=== PATIENT | female | born 1940 | race Caucasian/White ===

== ENCOUNTER 2017-09-22 16:00 | Inpatient (IN) | payer MEDICARE, BC ==
[~2017-09-22] VITALS: Ht 160 cm; Wt 71.7 kg
[~2017-09-22 16:00] MED LIST: ACETAMINOPHEN325 M1 PO; ACETAMINOPHEN650 M5 PO; AMLODIPINE BESY10 MG PO; ASPIRIN81 M2 PO; ATORVASTATIN CA40 MG PO; CELEXA40 MG PO; CENTRUM SILVER1 EAC4 PO; CHANTIX1 MG PO; COLACE100 MG PO; COUMADIN 5 MG TA5 M1 PO; ENOXAPARIN40 MG/0.1 SQ; ERYTHROMYCIN250 MG; KEFLEX500 MG PO; LISINOPRIL40 MG PO; MILK OF MA2400 MG/10 PO; MOBIC7.5 MG PO; NEURONTIN 300300 M1 PO; NICOTINE TRANSD21 M1 TRANSDERM; NITRO-DUR 0.1M0.1 M1 TD; NITRO-DUR 0.1M0.1 M1 TRANSDERM; NITROGLYCERIN0.4 MG SL; NORCO 5-325 TA1 EACH PO; PEPCID40 MG PO; PHENERGAN 25 MG25 MG PO; PLAVIX 75 MG TA75 MG PO; PRILOSEC 20 MG20 MG PO; PRILOSEC40 MG PO; PRIMIDONE50 MG PO; PRINIVIL40 MG PO; PROPRANOLOL 1010 M1 PO; PROPRANOLOL 20M20 M1 PO; RANITIDINE 150150 M1 PO; SIMVASTATIN40 MG PO; TRAMADOL 50 MG50 MG PO; ULTRAM 50MG TAB50 MG PO
[2017-09-22 16:01] VITALS: BP 90/31
--- NOTE | 2017-09-22 16:10 | NUR ---
DR VAZQUEZ NOTIFIED OF LOW B/P
[2017-09-22 16:50] LABS: ABSOLUTE EOSINOPHILS 0.2 thou/uL (0.0-0.7); ABSOLUTE MONOCYTES 0.5 thou/uL (0.0-1.2); ABSOLUTE NEUTROPHILS 6.2 thou/uL (1.6-8.1); BASOPHILS 0.5 %; EOSINOPHILS 2.3 %; HEMATOCRIT 37.1 % (37.0-47.0); HEMOGLOBIN 12.2 gm/dL (12.0-15.0); LYMPHOCYTES 12.6 %; MCH 30.4 pg (26.0-34.0); MCHC 32.8 g/dL (28.0-37.0); MCV 92.7 fL (80.0-100.0); MONOCYTES 6.7 %; MPV 8.5 fl. (7.2-11.1); NUCLEATED RBCS 0 /100WBC; PLATELET COUNT* 168 thou/uL (150-400); POLYS 77.9 %; RDW-CV 14.8 % (10.5-14.5); WBC 7.9 thou/uL (4.0-11.0)
[2017-09-22 16:58] LABS: ANION GAP 6 mmol/L (7-16); BUN 24 mg/dL (7-18); CALCIUM 8.6 mg/dL (8.5-10.1); CHLORIDE 103 mmol/L (98-107); CO2 31 mmol/L (21-32); CREATININE 2.5 mg/dL (0.6-1.3); GLUCOSE 105 mg/dL (70-99); POTASSIUM 3.8 mmol/L (3.5-5.1); SODIUM 140 mmol/L (136-145)
[2017-09-22] MEDS ORDERED: PERCOCET PO (17:06)
[2017-09-22] MEDS ORDERED: FLEXERIL PO (17:06)
[2017-09-22 17:12] LABS: ALBUMIN 3.7 g/dL (3.4-5.0); ALKALINE PHOSPHATASE 158 U/L (46-116); NT-PRO BRAIN NAT PEPTIDE 560 pg/mL (<300); SGOT 42 U/L (15-37); SGPT 33 U/L (30-65); TOTAL BILIRUBIN 0.4 mg/dL (<0.1-1.0); TOTAL PROTEIN 8.4 g/dL (6.4-8.2); TROPONIN-I LEVEL <0.06 ng/mL (<0.06)
[2017-09-22 18:19] LABS: URINE BILIRUBIN NEGATIVE (Negative); URINE BLOOD NEGATIVE (Negative); URINE CLARITY CLEAR; URINE COLOR DARK YELLOW; URINE GLUCOSE-RANDOM NEGATIVE (Negative); URINE KETONES TRACE (Negative); URINE LEUKOCYTES-REFLEX 1+ (Negative); URINE NITRITE-REFLEX NEGATIVE (Negative); URINE PROTEIN NEGATIVE (Negative); URINE SPECIFIC GRAVITY >= 1.030 (1.005-1.030); URINE UROBILINOGEN 0.2 E.U./dl (0.2-1.0)
[2017-09-22 18:31] VITALS: BP 106/58
[2017-09-22 18:32] LABS: BACTERIA-REFLEX >30 Many /HPF (None Seen); HYALINE CASTS >10 Many /LPF (None Seen); MUCUS >6 Heavy strn/LPF (None Seen); SQUAMOUS >10 Many /LPF (0-3); URINE RBC 3-10 Few /HPF (0-2)
[2017-09-22 18:33] LABS: CRYSTALS None Seen /LPF (None Seen)
[2017-09-22 19:30] LABS: PHOSPHORUS* 5.1 mg/dL (2.5-4.9)
[2017-09-22 19:58] VITALS: BP 112/68
[2017-09-22 20:00] VITALS: BP 124/82
[2017-09-23] VITALS (7 sets, daily range): BP systolic 100–161; BP diastolic 56–83
--- NOTE | 2017-09-23 01:36 | NUR ---
PATIENT ADMITTED TO THE FLOOR FOR NUMBNESS IS RT FOOT. WORK UP IN ER REVEALED NO ACUTE PROCESSES, (CT, CXR). RESTING IN BED WITHOUT COMPLAINTS. TURN EVERUY 2 HOURS, USES THE BEDPAN, CONT. IV FLUIDS WITHOUT DIFFICULTIES. DENIES PAIN OR DISCOMFORT. ALERT AND ORIENTED TO SURROUNDS BUT WAS UNABLE TO REPORT WHAT ASSISTED LIVING SHE CAME FROM. WILL PROCEED WITH CURRENT PLAN OF CARE AT THIS TIME.
[2017-09-23 05:35] LABS: HEMOGLOBIN 11.1 gm/dL (12.0-15.0); MCHC 33.7 g/dL (28.0-37.0); MPV 8.9 fl. (7.2-11.1); RBC 3.59 mil/uL (4.20-5.00); RDW-CV 14.6 % (10.5-14.5); WBC 12.1 thou/uL (4.0-11.0)
[2017-09-23 05:57] LABS: MAGNESIUM 1.7 mg/dL (1.8-2.4); POTASSIUM 3.6 mmol/L (3.5-5.1)
[2017-09-23 05:58] LABS: CREATININE 1.1 mg/dL (0.6-1.3)
--- NOTE | 2017-09-23 11:27 | EKG ---
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: [place] : 1940 Requested By: Fermin Frederick Order Number: [id number] MD: Mesfin Benoit Measurements Intervals [place] Rate: 74 P: -17 GA: 165 QRS: -13 QRSD: 93 T: 18 QT: 470 QTc: 522 Interpretive Statements Sinus rhythm Paired ventricular premature complexes Consider anterior infarct Borderline T abnormalities, inferior leads Prolonged QT interval Compared to ECG 03/01/2016 06:40:56 ST (T wave) deviation no longer present Myocardial infarct finding still present T-wave abnormality still present Electronically Signed On 09-23-2017 11:27:42 MARINATOR by Mesfin Benoit [email or web address] <ELECTRONICALLY SIGNED> By: Mesfin Benoit MD, FAC 09/23/17 1127 1653 1653 Mesfin Benoit MD, FAC /EPI
--- NOTE | 2017-09-23 17:00 | NUR ---
PT HAS BEEN CONFUSED THROUGHOUT THE DAY. PT HAS REQUIRED ASSISTANCE WITH FEEDING. ORIENTED TO SELF ONLY, SEEING UNSEEN OTHERS THIS AM. REORIENTS EASILY. INCONTINENCE CARE PROVIDED X5 TODAY. SR PVCs ON MONITOR. HOURLY ROUNDING FOR PT SAFETY.
--- NOTE | 2017-09-23 17:16 | NUR ---
ATTEMPTED TO SEE PT. SHE TOLD ME SHE HAD TO GO TO THE BATHROOM REALLY BAD. CM INFORMED MARYCRUZ SALMERON. RECORDS INDICATED PT. IS FROM [facility]. [facility] HERE TO SEE PT. SHE SAID [facility] ASKED TO EVAL PT. THERE IS NO DR.S ORDER. DID NOT LET HER EVAL PT. HAVE NOT SPOKEN WITH FAMILY. CM WILL CALL COV AND SON TOMORROW.
[2017-09-24] VITALS: BP 129/66; BP 160/58
[2017-09-24 04:00] VITALS: BP 133/69; BP 137/65
--- NOTE | 2017-09-24 07:00 | NUR ---
ASSUMED CARE AT 1999, REPORT RECEIVED FROM MARYCRUZ SALMERON. PATIENT ALERT/ORIENTED TO SELF ONLY, RESTING IN BED. PATIENT VERY RESTLESS IN BED, STATES SMELLING SOME "ODOR" AND GAGGING, STATES SEEING OTHERS IN ROOM, STATES WATCHING TV AND IT MAKING HER NAUSEATED, SPINNING IN BED AND LAYING WITH HER HEAD AT THE FOOT OF THE BED, TAKING GOWN/BLANKETS/LEADS OFF. PATIENT FREQUENTLY HOLLERING OUT FOR BATHROOM, VOIDING APPROXIMATELY Q30 MIN PER BEDPAN OR IS INCONTINENT PER BED. TERRANCE-CARE GIVEN. DENIES PAIN OR NEEDS. BED ALARM ON. TURNING SELF IN BED. CALL LIGHT WITHIN REACH, ENCOURAGED TO CALL FOR NEEDS. 0700: DR. FARLEY ON FLOOR, NOTIFIED OF NIGHT, ORDERS PLACED IN CHART.
[2017-09-24 08:00] VITALS: BP 156/81
[2017-09-24 08:16] LABS: ALBUMIN 3.6 g/dL (3.4-5.0); CALCIUM 8.7 mg/dL (8.5-10.1); CREATININE 0.8 mg/dL (0.6-1.3); TOTAL BILIRUBIN 0.4 mg/dL (<0.1-1.0); TOTAL PROTEIN 8.3 g/dL (6.4-8.2)
[2017-09-24 08:34] LABS: ABSOLUTE EOSINOPHILS 0.1 thou/uL (0.0-0.7); ABSOLUTE LYMPHOCYTES 1.1 thou/uL (0.8-5.3); ABSOLUTE MONOCYTES 0.4 thou/uL (0.0-1.2); ABSOLUTE NEUTROPHILS 11.8 thou/uL (1.6-8.1); BASOPHILS 0.1 %; HEMATOCRIT 38.3 % (37.0-47.0); HEMOGLOBIN 12.6 gm/dL (12.0-15.0); LYMPHOCYTES 7.8 %; MCH 30.2 pg (26.0-34.0); MCV 91.6 fL (80.0-100.0); MONOCYTES 3.3 %; MPV 9.6 fl. (7.2-11.1); NUCLEATED RBCS 0 /100WBC; PLATELET COUNT* 138 thou/uL (150-400); POLYS 87.8 %; RBC 4.19 mil/uL (4.20-5.00); RDW-CV 14.8 % (10.5-14.5); WBC 13.5 thou/uL (4.0-11.0)
--- NOTE | 2017-09-24 11:37 | NUR ---
PT.HAS DISCHARGE ORDERS TO GO BACK TO [facility] TODAY. NOTIFIED SON,BETHEL. HE WILL COME TO PICK PT.UP AFTER 4PM WHEN HE GETS OFF WORK. NOTIFIED CHARLES/KELLY [phone] THAT PT.RETURNING AFTER 4PM TODAY. DISCUSSED HOSPICE BRIEFLY WITH HIM. HE IS FAMILIAR WITH [facility] FROM [facility] [place]. HE SAID HE WOULD NOT MIND HAVING AN INFORMATIONAL VISIT FROM THEM WHEN SHE RETURNS TO THE FACILITY. FAXED DISCHARGE ORDERS TO HER. CHART TO BE COPIED TO GO WITH HER. EMILIANORN WILL CALL REPORT. CHARLES AT [facility] STATED PT.AMBULATES A LITTLE BUT MAINLY NAVIGATES AROUND IN HER WC.
[2017-09-24] MEDS ORDERED: CIPRO500 MG PO (12:23)
[2017-09-24 12:30] VITALS: BP 156/81
--- NOTE | 2017-09-24 12:56 | NUR ---
ASSUMED CARE OF PT AT 0730. PT LYING IN BED. PT A&0 SELF ONLY, CONFUSED, FORGETFUL AND IMPULSIVE. BED ALARM IN PLACE. PT TRACING SR WITH PVCS ON THE TIME STUDY CLERK. PT ON RA SAT 95%. PT DENIES ANY PAIN OR SHORTNESS OF BREATH. PT INCONT OF BOWEL AND BLADDER. AM ASSESSMENT CHARTED. MEDICATIONS PER MAR IN APPLESAUCE. PT REPOSITIONED EVERY 2 HOURS FOR COMFORT ALTHOUGH PT REPOSITIONS SELF FREQUENTLY PT IS ALL OVER BED. HOURLY ROUNDING OBSERVED. BED IN LOW POSITION. BED ALARM IN PLACE. FALL PRECAUTIONS IN PLACE. CALL LIGHT WITHIN REACH. WILL CONTINUE PLAN OF CARE.
--- NOTE | 2017-09-24 15:42 | NUR ---
DISCHARGE ORDERS RECEIVED. DISCHARGE INSTRUCTIONS, CARE NOTES, SCRIPTS AND FOLLOW UP APPTS COPIED AND PLACED IN FOLDER FOR SON TO TAKE BACK TO ASSISTED LIVING. IV AND EMBOSSING MACHINE TENDER REMOVED. PT DISCHARGED WITH ALL BELONGINGS AND PAPERWORK VIA WHEELCHAIR WITH [employer] TO SONS OWN PERSONAL VEHICLE. SON TO TRANSPORT PT BACK TO [facility]. REPORT CALLED TO CHARLES AT [facility] IN [place].
== END 2017-09-24 15:49 | DRG 371 ==
LOC: M.ERS 16:00 → M.TBA-ER 18:15 → M.2W 18:15
PROVIDERS: Emergency Medicine; Family Medicine; Internal Medicine; ADMIT Internal Medicine
DX: A04.9 Bacterial intestinal infection, unspecified (principal); N17.0 Acute kidney failure with tubular necrosis; G92 Toxic encephalopathy; N39.0 Urinary tract infection, site not specified; R65.10 Systemic inflammatory response syndrome (SIRS) of non-infectious origin without acute organ dysfunction; I95.9 Hypotension, unspecified; E86.9 Volume depletion, unspecified; G62.9 Polyneuropathy, unspecified; I10 Essential (primary) hypertension; K21.9 Gastro-esophageal reflux disease without esophagitis; K57.90 Diverticulosis of intestine, part unspecified, without perforation or abscess without bleeding; F17.210 Nicotine dependence, cigarettes, uncomplicated; E86.0 Dehydration; M19.90 Unspecified osteoarthritis, unspecified site; Z66 Do not resuscitate; I25.10 Atherosclerotic heart disease of native coronary artery without angina pectoris; I73.9 Peripheral vascular disease, unspecified; Z79.891 Long term (current) use of opiate analgesic; Z90.49 Acquired absence of other specified parts of digestive tract; Z86.19 Personal history of other infectious and parasitic diseases; Z86.73 Personal history of transient ischemic attack (TIA), and cerebral infarction without residual deficits; Z90.710 Acquired absence of both cervix and uterus; Z95.5 Presence of coronary angioplasty implant and graft; Z88.6 Allergy status to analgesic agent; Z88.1 Allergy status to other antibiotic agents; Z88.2 Allergy status to sulfonamides; Z79.82 Long term (current) use of aspirin; Z79.899 Other long term (current) drug therapy

== ENCOUNTER 2018-06-25 00:11 | Inpatient (IN) | payer MEDICARE, BC ==
[~2018-06-25] VITALS: Ht 160 cm; Wt 68.0 kg
[~2018-06-25 00:11] MED LIST changes: +CIPRO500 MG PO; +FLEXERIL PO; +PERCOCET PO
[2018-06-25 00:22] VITALS: BP 117/75
[2018-06-25] MEDS ORDERED: ZANAFLEX2 MG PO (00:42)
[2018-06-25] MEDS ORDERED: MELATONIN5 M1 PO (00:42)
[2018-06-25] MEDS ORDERED: TRAMADOL HCL E100 M1 PO (00:44)
[2018-06-25] MEDS ORDERED: MIRALAX17 GM PO (00:45)
[2018-06-25 01:21] LABS: ABSOLUTE EOSINOPHILS 0.2 thou/uL (0.0-0.7); ABSOLUTE LYMPHOCYTES 1.7 thou/uL (0.8-5.3); ABSOLUTE MONOCYTES 0.9 thou/uL (0.0-1.2); ABSOLUTE NEUTROPHILS 6.4 thou/uL (1.6-8.1); BASOPHILS 0.3 %; HEMATOCRIT 34.3 % (37.0-47.0); HEMOGLOBIN 11.2 gm/dL (12.0-15.0); LYMPHOCYTES 18.7 %; MCH 29.3 pg (26.0-34.0); MCHC 32.6 g/dL (28.0-37.0); MCV 89.8 fL (80.0-100.0); MONOCYTES 9.5 %; NUCLEATED RBCS 0 /100WBC; PLATELET COUNT* 184 thou/uL (150-400); POLYS 69.5 %; RBC 3.83 mil/uL (4.20-5.00); RDW-CV 14.8 % (10.5-14.5); WBC 9.3 thou/uL (4.0-11.0)
[2018-06-25 01:24] LABS: ANION GAP 8 mmol/L (7-16); BUN 11 mg/dL (7-18); CALCIUM 8.7 mg/dL (8.5-10.1); CHLORIDE 100 mmol/L (98-107); CO2 28 mmol/L (21-32); CREATININE 0.8 mg/dL (0.6-1.3); GLUCOSE 85 mg/dL (70-99); POTASSIUM 3.3 mmol/L (3.5-5.1); SODIUM 136 mmol/L (136-145)
[2018-06-25 01:25] LABS: PROTIME 10.7 Seconds (9.20-11.50)
[2018-06-25 01:31] LABS: ALBUMIN 3.4 g/dL (3.4-5.0); ALKALINE PHOSPHATASE 131 U/L (46-116); SGOT 23 U/L (15-37); SGPT 24 U/L (30-65); TOTAL BILIRUBIN 0.3 mg/dL (<0.1-1.0); TOTAL PROTEIN 8.2 g/dL (6.4-8.2); TROPONIN-I LEVEL <0.06 ng/mL (<0.06)
[2018-06-25 02:06] LABS: URINE BILIRUBIN NEGATIVE (Negative); URINE BLOOD TRACE (Negative); URINE CLARITY CLEAR; URINE COLOR YELLOW; URINE GLUCOSE-RANDOM NEGATIVE (Negative); URINE KETONES NEGATIVE (Negative); URINE LEUKOCYTES-REFLEX NEGATIVE (Negative); URINE NITRITE-REFLEX NEGATIVE (Negative); URINE PROTEIN NEGATIVE (Negative); URINE SPECIFIC GRAVITY <= 1.005 (1.005-1.030); URINE UROBILINOGEN 0.2 E.U./dl (0.2-1.0)
[2018-06-25 05:15] VITALS: BP 144/55
[2018-06-25 05:55] VITALS: BP 133/58
[2018-06-25 08:00] VITALS: BP 118/44
[2018-06-25 20:00] VITALS: BP 154/79
[2018-06-25 21:00] VITALS: BP 130/54
[2018-06-26 04:12] LABS: HEMATOCRIT 31.5 % (37.0-47.0); HEMOGLOBIN 10.5 gm/dL (12.0-15.0); MCH 30.1 pg (26.0-34.0); MCHC 33.3 g/dL (28.0-37.0); MCV 90.3 fL (80.0-100.0); MPV 8.2 fl. (7.2-11.1); RBC 3.49 mil/uL (4.20-5.00); RDW-CV 14.8 % (10.5-14.5); WBC 5.1 thou/uL (4.0-11.0)
[2018-06-26 04:20] LABS: CALCIUM 8.5 mg/dL (8.5-10.1); CREATININE 0.9 mg/dL (0.6-1.3); POTASSIUM 3.5 mmol/L (3.5-5.1)
[2018-06-26 07:45] VITALS: BP 166/61
--- NOTE | 2018-06-26 10:15 | EKG ---
[place] [address] ELECTROCARDIOGRAM REPORT Name: SYLVIE MAGUIRE Room: [address] ADM IN .R.#: [id number] Admission: 06/25/18 Attend Phys: Maryjo Romeo MD Discharge: Date of : 40 Report #: [id number] THIS REPORT FOR: //name// [facility] ED Test Date: 2018-06-25 Test Time: 01:33:40 Pat Name: SYLVIE MAGUIRE Department: Room: [facility] Gender: F Framer: : 1940 Requested By: Jordyn Bonilla Order Number: [id number] MD: Calvin Campbell Measurements Intervals [place] Rate: 76 P: [place]: QRS: -14 QRSD: 96 T: 140 QT: 408 QTc: 459 Interpretive Statements Sinus rhythm Nonspecific T-wave flattening Compared to ECG 09/22/2017 16:53:46 Ventricular premature complex(es) no longer present Myocardial infarct finding no longer present Prolonged QT interval no longer present Electronically Signed On 06-26-2018 10:15:36 GLOVE BRUSHER by Calvin Campbell [email or web address] <ELECTRONICALLY SIGNED> By: Calvin Campbell MD, FACC 06/26/18 1015 0133 0133 Calvin Campbell MD, FAC /EPI
--- NOTE | 2018-06-26 10:17 | EKG ---
[place] [address] ELECTROCARDIOGRAM REPORT Name: SYLVIE MAGUIRE Room: [address] ADM IN .R.#: [id number] Admission: 06/25/18 Attend Phys: Maryjo Romeo MD Discharge: Date of : 40 Report #: [id number] THIS REPORT FOR: //name// [facility] ED Test Date: 2018-06-25 Test Time: 04:56:47 Pat Name: SYLVIE MAGUIRE Department: Room: [facility] Gender: F Data Entry Specialist: : 1940 Requested By: Jordyn Bonilla Order Number: [id number] MD: Calvin Campbell Measurements Intervals [place] Rate: 74 P: 29 NV: 150 QRS: -7 QRSD: 104 T: -2 QT: 442 QTc: 491 Interpretive Statements Sinus rhythm Compared to ECG 09/22/2017 16:53:46 No significant changes noted Electronically Signed On 06-26-2018 10:17:26 SPECIALTY MOLDER by Calvin Campbell [email or web address] <ELECTRONICALLY SIGNED> By: Calvin Campbell MD, [facility] 06/26/18 1017 5 5 Calvin Campbell MD, FACC /EPI
[2018-06-26 16:32] VITALS: BP 144/73
[2018-06-26 23:14] VITALS: BP 146/64
[2018-06-27 03:52] LABS: CALCIUM 8.4 mg/dL (8.5-10.1); CREATININE 0.7 mg/dL (0.6-1.3); POTASSIUM 3.4 mmol/L (3.5-5.1)
[2018-06-27 08:15] VITALS: BP 154/66
[2018-06-27 15:46] VITALS: BP 137/69
[2018-06-27 21:30] VITALS: BP 154/63
[2018-06-28 04:53] LABS: HEMATOCRIT 33.4 % (37.0-47.0); HEMOGLOBIN 11.3 gm/dL (12.0-15.0); MCH 30.4 pg (26.0-34.0); MCHC 33.8 g/dL (28.0-37.0); MCV 90.1 fL (80.0-100.0); MPV 8.7 fl. (7.2-11.1); RBC 3.71 mil/uL (4.20-5.00); RDW-CV 14.6 % (10.5-14.5); WBC 5.3 thou/uL (4.0-11.0)
[2018-06-28 05:10] LABS: ALBUMIN 3.3 g/dL (3.4-5.0); CALCIUM 9.1 mg/dL (8.5-10.1); CREATININE 0.9 mg/dL (0.6-1.3); MAGNESIUM 2.1 mg/dL (1.8-2.4); POTASSIUM 3.9 mmol/L (3.5-5.1); TOTAL BILIRUBIN 0.4 mg/dL (<0.1-1.0); TOTAL PROTEIN 7.8 g/dL (6.4-8.2)
[2018-06-28 08:00] VITALS: BP 140/72
[2018-06-28] MEDS ORDERED: LIDOPATCH1 EACH TOP (11:00)
[2018-06-28] MEDS ORDERED: TRAMADOL 50 MG50 MG PO (11:00)
[2018-06-28] MEDS ORDERED: PERCOCET PO (11:00)
[2018-06-28 13:35] VITALS: BP 154/63
[2018-06-28 13:59] VITALS: BP 154/63
[2018-06-28] MEDS ORDERED: LIDODERM1 EACH TOP (14:14)
[2018-06-28 15:45] VITALS: BP 154/63
== END 2018-06-28 15:15 | disposition home health service (06) | DRG 535 ==
LOC: M.ERS 00:11 → M.TBA-ER 02:48 → M.ORTHSURG 02:48
PROVIDERS: Emergency Medicine; Internal Medicine; ADMIT Family Medicine
DX: S72.145A Nondisplaced intertrochanteric fracture of left femur, initial encounter for closed fracture (principal); G92 Toxic encephalopathy; I10 Essential (primary) hypertension; I25.10 Atherosclerotic heart disease of native coronary artery without angina pectoris; M47.897 Other spondylosis, lumbosacral region; M47.893 Other spondylosis, cervicothoracic region; T50.905A Adverse effect of unspecified drugs, medicaments and biological substances, initial encounter; W18.39XA Other fall on same level, initial encounter; F32.9 Major depressive disorder, single episode, unspecified; Z88.2 Allergy status to sulfonamides; R41.0 Disorientation, unspecified; D63.8 Anemia in other chronic diseases classified elsewhere; D50.9 Iron deficiency anemia, unspecified; F41.9 Anxiety disorder, unspecified; G57.92 Unspecified mononeuropathy of left lower limb; F17.210 Nicotine dependence, cigarettes, uncomplicated; Z86.73 Personal history of transient ischemic attack (TIA), and cerebral infarction without residual deficits; Z79.82 Long term (current) use of aspirin; Z79.899 Other long term (current) drug therapy; Z88.5 Allergy status to narcotic agent; Z88.6 Allergy status to analgesic agent; Z82.49 Family history of ischemic heart disease and other diseases of the circulatory system; Y93.89 Activity, other specified; Y92.89 Other specified places as the place of occurrence of the external cause; Y99.8 Other external cause status

== ENCOUNTER 2019-02-19 22:25 | Emergency (ER) | payer MEDICARE, BC ==
[~2019-02-19] VITALS: Ht 152.4 cm; Wt 77.1 kg
[~2019-02-19 22:25] MED LIST changes: +LIDODERM1 EACH TOP; +LIDOPATCH1 EACH TOP; +MELATONIN5 M1 PO; +MIRALAX17 GM PO; +TRAMADOL HCL E100 M1 PO; +ZANAFLEX2 MG PO
[2019-02-19 23:38] VITALS: BP 121/56
--- NOTE | 2019-02-20 11:01 | EKG ---
[place] [address] ELECTROCARDIOGRAM REPORT Name: SYLVIE MAGUIRE [facility]#: [id number] Admission: 02/19/19 Attend Phys: Discharge: 02/19/19 Date of : 40 Report #: [id number] THIS REPORT FOR: //name// [facility] ED Test Date: 2019-02-19 Test Time: 22:40:02 Pat Name: SYLVIE MAGUIRE Department: Room: Gender: F E Commerce Marketing Analyst: [place] : 1940 Requested By: Tung Cain Order Number: [id number] MD: Henry Lamar Measurements Intervals [place] Rate: 64 P: 6 MD: 175 QRS: -11 QRSD: 89 T: 36 QT: 551 QTc: 569 Interpretive Statements Sinus rhythm Ventricular premature complex Borderline T abnormalities, anterior leads Prolonged QT interval Compared to ECG 06/25/2018 04:56:47 Ventricular premature complex(es) now present Prolonged QT interval now present Electronically Signed On 02-20-2019 11:01:17 CDT by Henry Lamar [email or web address] <ELECTRONICALLY SIGNED> By: Henry Lamar MD, [facility] 02/20/19 1101 2240 2240 Henry Lamar MD, [facility] /EPI
== END 2019-02-19 23:40 | disposition home or self-care (01) ==
LOC: M.ERS 22:25
DX: R55 Syncope and collapse (principal); F17.210 Nicotine dependence, cigarettes, uncomplicated; I25.10 Atherosclerotic heart disease of native coronary artery without angina pectoris; Z88.8 Allergy status to other drugs, medicaments and biological substances; Z88.2 Allergy status to sulfonamides; Z88.5 Allergy status to narcotic agent; Z88.6 Allergy status to analgesic agent; Z86.73 Personal history of transient ischemic attack (TIA), and cerebral infarction without residual deficits